=== PATIENT | male | born 1985 ===

== ENCOUNTER 2017-08-30 13:12 | Outpatient (CLI) | payer OTHER ==
--- NOTE | 2017-08-30 16:06 | Diagnostic Imaging Report ---
Indications: Inguinal and perineal pain Technique: Grayscale and duplex images of the scrotum Comparison: none Findings:The right testicle measures 4.2cm in length. It demonstrates normal echogenicity. Normal Doppler flow. Normal epididymis. There is a small hydrocele and a small varicocele The left testicle measures 4 cm in length. It demonstrates normal echogenicity and normal Doppler flow. Normal epididymis. There is a small hydrocele and small varicocele Careful scanning of the bilateral inguinal regions demonstrates no evidence of inguinal or femoral hernia. Patient indicates area of pain is predominantly the anterior perineal region on the left. No definite abnormality could be identified in this area Impression: Negative for evidence of inguinal or femoral hernia Small bilateral hydroceles and varicoceles No evidence of testicular abnormality
== END 2017-08-30 15:12 | disposition home or self-care (01) ==
LOC: ULS 13:12
DX: R10.2 Pelvic and perineal pain (principal); N43.3 Hydrocele, unspecified; I86.1 Scrotal varices
CPT/HCPCS: 76870